=== PATIENT | male | born 1935 | race Caucasian/White ===

== ENCOUNTER → 2017-03-07 | Outpatient (CLI) | payer MEDICARE ==
[2017-03-07 10:04] LABS: Blood Urea Nitrogen 17 mg/dL (9-20)
--- NOTE | 2017-03-07 12:11 | MR ---
EXAMINATION TYPE: MR brain wo/w con DATE OF EXAM: 03/07/2017 COMPARISON: 02/25/2014 HISTORY: Unspecified dementia without behavioral disorder TECHNIQUE: Multiplanar, multisequence images of the brain and brainstem is performed without and with IV contras t, utilizing 7.5 mL intravenous Gadavist . FINDINGS: Diffusion weighted images demonstrate focal area of restricted diffusion within the right p ons. No mass or abnormal enhancement is seen in this region and therefore this is compatible with an acute infarct. There is again a cavum septum pelucidum et verge. There is redemonstration of a 4.8 x 4.4 cm extra-axial T2 hyperintense and T1 hypointense nonenhancing left middle cranial fossa cystic l esion most compatible with an arachnoid cyst with mass effect upon the left temporal lobe and tempora l hormone of the left lateral ventricle. This measured 3.4 x 4.8 x 3.3 cm on the exam of 02/25/2014. The ventricular system and cisternal spaces are symmetrically prominent compatible with age-related v olume loss. Innumerable foci of T2/FLAIR hyperintensity are seen within the subcortical and periventr icular white matter as well as of the deep white matter. These are similar dating back to the exam of 2014. Mild mucosal thickening within the maxillary, frontal, and ethmoid sinuses are noted. Sphenoid sinuses and mastoid air cells are well aerated. Midline structures demonstrate normal morphology. The craniocervical junction appears within normal limits. Post contrast images demonstrate no abnormal enhancement. IMPRESSION: 1. Small right acute pontine infarct. 2. 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 3. 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 4. Mild paranasal sinus disease. 5. No abnormal intracranial enhancement. A Isabella message has been communicated to Karen Casiano MD via the [employer] system on 03/07/2017 12:08 PM, Message ID [id number].
== END | disposition home or self-care (01) ==
LOC: RADMRIMAIN 09:26
PROVIDERS: ATTEND Family Medicine
DX: I63.9 Cerebral infarction, unspecified (principal); R90.89 Other abnormal findings on diagnostic imaging of central nervous system
CPT/HCPCS: 82565; 84520; 70553; A9581